=== PATIENT | female | born 1995 | race Caucasian/White ===

== ENCOUNTER 2019-01-27 11:37 | Day surgery (SDC) | payer BC ==
[~2019-01-27] VITALS: Ht 162.6 cm; Wt 110.6 kg
[~2019-01-27 11:37] MED LIST: RXCEPH250S PO
--- NOTE | 2019-01-27 12:00 | NUR ---
01/27/19 1200 Navin Sawant CALL LIGHT WITHIN REACH
== END 2019-01-27 14:20 | disposition home or self-care (01) ==
LOC: ORSCSDS 11:37
PROVIDERS: Orthopaedic Surgery
PROC: 0PSP34Z Reposition Right Metacarpal with Internal Fixation Device, Percutaneous Approach (ICD-10-PCS; principal; 2019-01-27 12:45)
DX: S62.316A Displaced fracture of base of fifth metacarpal bone, right hand, initial encounter for closed fracture (principal)
CPT/HCPCS: J0690; J1100; J1885; J2250; J2405; J2704; J3010; J7120